=== PATIENT | female | born 1990 | race Caucasian/White ===

== ENCOUNTER 2023-09-04 15:30 | Emergency (ER) | payer OTHER ==
--- NOTE | 2023-09-04 15:49 | EDPHYS ---
Physician Documentation [facility] Name: Luisana Sanders Age: 33 yrs Sex: Female : 1990 Arrival Date: 09/04/2023 Time: 15:30 Bed Waiting Private MD: ED Physician Broderick Ojeda HPI: 09/04 15:36 This 33 yrs old Female presents to ER via Unassigned with complaints of Ear Pain. jh7 15:36 The patient presents with drainage, that is purulent, pain, that is acute, tenderness. jh7 The complaints affect the left ear. Onset: The symptoms/episode began/occurred 3 day(s) ago. Associated signs and symptoms: Pertinent negatives: fever, shortness of breath, vomiting. 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 - Social history:: Smoking status: Patient denies any tobacco usage or history of. ROS: 15:36 Constitutional: Negative for fever, chills, and weight loss, Cardiovascular: Negative jh7 for chest pain, palpitations, and edema, Respiratory: Negative for shortness of breath, cough, wheezing, and pleuritic chest pain, Abdomen/GI: Negative for abdominal pain, nausea, vomiting, diarrhea, and constipation, Skin: Negative for injury, rash, and discoloration, Neuro: Negative for headache, weakness, numbness, tingling, and seizure, 15:36 ENT: Positive for ear pain, 15:36 All other systems are negative, Exam: 15:36 Constitutional: This is a well developed, well nourished patient who is awake, alert, jh7 and in no acute distress. Cardiovascular: Regular rate and rhythm with a normal S1 and S2. No gallops, murmurs, or rubs. Normal PMI, no JVD. No pulse deficits. Respiratory: Lungs have equal breath sounds bilaterally, clear to auscultation and percussion. No rales, rhonchi or wheezes noted. No increased work of breathing, no retractions or nasal flaring. Abdomen/GI: Soft, non-tender, with normal bowel sounds. No distension or tympany. No guarding or rebound. No evidence of tenderness throughout. Skin: Warm, dry with normal turgor. Normal color with no rashes, no lesions, and no evidence of cellulitis. MS/ Extremity: Pulses equal, no cyanosis. Neurovascular intact. Full, normal range of motion. Neuro: Awake and alert, GCS 15, oriented to person, place, time, and situation. Motor strength 5/5 in all extremities. Sensory grossly intact. Normal gait. 15:36 ENT: TM's: bulging, on the left, erythema, that is moderate, on the left, Vital Signs: 15:56 BP 121 / 93; Pulse 95; Resp 18; Temp 98.2; Pulse Ox 99% on R/A; Weight 58.97 kg (R); cm10 MDM: 15:36 Patient medically screened. [facility] 15:40 Differential diagnosis: otitis media, otitis externa, ruptured TM, acute otalgia, jh7 cerumen impaction. Data reviewed: vital signs, nurses notes. Counseling: I had a detailed discussion with the patient and/or guardian regarding the historical points, exam findings, and any diagnostic results supporting the discharge/admit diagnosis, to return to the emergency department if symptoms worsen or persist or if there are any questions or concerns that arise at home. Administered Medications: No medications were administered Disposition: 16:42 I agree with the assessment and plan of care. I reviewed the patient's care provided by cp3 Advanced Practice Provider \T\ agree w/ the diagnosis \T\ care plan. I personally saw the pt \T\ performed a substantive portion of the visit, incldng all aspects of the (History/Exam/Medical Decision Making). Disposition Summary: 09/04/23 15:48 Discharge Ordered Notes: Location: Home [facility] Problem: new [facility] Symptoms: are unchanged [facility] Condition: Stable [facility] Diagnosis - Acute serous otitis media, left ear [facility] Followup: [facility] - With: Private Physician - When: 2 - 3 days - Reason: Recheck today's complaints Discharge Instructions: - Discharge Summary Sheet [facility] - Otitis Media, Adult [facility] Forms: - Medication Reconciliation Form [facility] - Thank You Letter [facility] - Antibiotic Education [facility] - Patient Portal Instructions [facility] - Leadership Thank You Letter 7 Prescriptions: - Amoxicillin 875 mg Oral Tablet - take 1 tablet ORAL route every 12 hours for 10 days; 20 tablet; Refills: 0, jh7 Product Selection Permitted Signatures: Broderick Ojeda MD MD cp3 Sole Shi, USER EXPERIENCE DEVELOPER USER EXPERIENCE DEVELOPER 7 Mari Wood, RN RN cm10
--- NOTE | 2023-09-04 16:00 | ER ---
Nurse's Notes [facility] Name: Luisana Sanders Age: 33 yrs Sex: Female : 1990 Arrival Date: 09/04/2023 Time: 15:30 Bed Waiting Private MD: Diagnosis: Acute serous otitis media, left ear Presentation: 09/04 15:56 Chief complaint: Patient states: Left ear pain X2 days, pt reports having drainage from cm10 that ear. Coronavirus screen: Vaccine status: Patient reports being unvaccinated. Client denies travel out of the [place] in the last 14 days. Ebola Screen: Patient denies travel to an Ebola-affected area in the 21 days before illness onset. No symptoms or risks identified at this time. Initial Sepsis Screen: Does the patient meet any 2 criteria? No. Patient's initial sepsis screen is negative. Does the patient have a suspected source of infection? No. Patient's initial sepsis screen is negative. Risk Assessment: Do you want to hurt yourself or someone else? Patient reports no desire to harm self or others. Onset of symptoms was September 04, 2023. 15:56 Method Of Arrival: Ambulatory cm10 15:56 Acuity: JOSHUA 4 cm10 Triage Assessment: 15:57 General: Appears in no apparent distress. comfortable, Behavior is calm, cooperative. cm10 Pain: Complains of pain in left ear. EENT: Reports pain in left ear. Neuro: No deficits noted. Reynolds Agitation-Sedation Scale (RASS): 0 - Alert and Calm Level of Consciousness is awake, alert, obeys commands, Oriented to person, place, time, situation. Cardiovascular: No deficits noted. Patient's skin is warm and dry. Respiratory: No deficits noted. Airway is patent Respiratory effort is even, unlabored, Respiratory pattern is regular, symmetrical. Derm: No deficits noted. No signs and/or symptoms reported regarding the dermatologic system. Skin is intact, Skin is pink, warm \T\ dry. 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 - Social history:: Smoking status: Patient denies any tobacco usage or history of. Screenin:57 [facility] ED Fall Risk Assessment (Adult) History of falling in the last 3 months, cm10 including since admission No falls in past 3 months (0 pts) Confusion or Disorientation No (0 pts) Intoxicated or Sedated No (0 pts) Impaired Gait No (0 pts) Mobility Assist Device Used No (0 pt) Altered Elimination No (0 pt) Score/Fall Risk Level 0 - 2 = Low Risk Oriented to surroundings, Maintained a safe environment, Hourly rounding (assess needs \T\ fall precautionary measures) done. Abuse screen: Denies threats or abuse. Denies injuries from another. Nutritional screening: No deficits noted. Tuberculosis screening: No symptoms or risk factors identified. Vital Signs: 15:56 BP 121 / 93; Pulse 95; Resp 18; Temp 98.2; Pulse Ox 99% on R/A; Weight 58.97 kg (R); cm10 ED Course: 15:35 Patient arrived in ED. mr 15:36 Sole Shi FNP [facility] 15:36 Broderick Ojeda MD is Attending Physician. [facility] 15:57 Triage completed. cm10 15:57 Arm band placed on Patient placed in waiting room. cm10 15:57 Patient has correct armband on for positive identification. Provided Education on: ER cm10 process and procedures. . 15:57 No provider procedures requiring assistance completed. Patient did not have IV access cm10 during this emergency room visit. Administered Medications: No medications were administered Medication: 15:57 VIS not applicable for this client. cm10 Outcome: 15:48 Discharge ordered by . [facility] 15:57 Discharged to home ambulatory, with significant other, cm10 15:57 Condition: good 15:57 Discharge instructions given to patient, Instructed on discharge instructions, follow up and referral plans. medication usage, Demonstrated understanding of instructions, follow-up care, medications, Prescriptions given X 1, 15:59 Patient left the ED. cm10 Signatures: Angi Canales, Reg Reg mr Sole Shi FNP MECHANICAL ENGINEERING LECTURER Mari Pichardo, SABAS RN cm10
[2023-09-04 16:04] VITALS: BP 121/93; TEMP 98.2; O2SAT 99
== END 2023-09-04 15:59 | disposition home or self-care (01) ==
LOC: ER 15:30
DX: H65.02 Acute serous otitis media, left ear (principal)
CPT/HCPCS: 99283